=== PATIENT | male | born 2005 | race Caucasian/White ===

== ENCOUNTER → 2023-05-17 | Emergency (ER) | payer SELFPAY ==
[~2023-05-17] MED LIST: NA CHLORIDE 0.9% 1,000 ML ONE; ONDANSETRON 4 MG/2 ML VIAL ONE
--- OUTSIDE RECORDS SUMMARY | 2023-05-17 08:28 | XMS REPORT | Continuity of Care Document ---
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 2022-02-16 00:00:00 2022-02-16 00:00:00 Orders Only Doctor Unassigned, [facility] 1.2.840.114 350.1.13.10 4.2.7.2.686 [id number] [facility] 2018-06-11 12:29:00 2018-06-11 15:59:00 CONTUS OTH PRT HEAD INITIAL ENCNTR 1 TRAVIS MIRELES [facility], [address] [place], [place] [address] [facility] [id number] [facility] (LUF/LI V/SA) 2017-11-21 09:02:00 2017-11-21 10:20:00 ALLERGIC RHINITIS UNSPECIFIE TRAVIS NAQVI [facility], [address] [place], [place] [address] [facility] [id number] [facility] (LUF/LI V/SA) 2017-05-02 10:48:00 2017-05-02 13:39:00 VIRAL INFECTION UNSPECIFIE D ALANNA SERVIN [facility], [address] [place] [id number] [facility] [id number] [facility] (LUF/LI V/SA) Results Test Description Test Time Test Comments Results Resul t Comments Source XR HAND MIN 3VWS 2018-05-25 8 15:17:40 Procedure: XR HAND MIN 3VWS Exam Date: 06/11/2018 1:52 PMOrdering Provider: BINDU HERNANDEZClinical Indication: [id number]: Traumatic injuryComparison: None.Findings:Bones are in normal alignment. Joint spaces preserved. No acute fracture ordislocation. No radio-opaque foreign body.Impression:No acute fracture or dislocation. No radio-opaque foreign body.This final report was electronically signed by Dr Chad Romero DO 06/11/20183:11 PMDictated By: PANCHO ROMEROINDate: 06/11/2018 15:11 [facility] CT HEAD W/O CONTRAST 2018-05-25 8 15:05:54 Procedure: CT HEAD W/O CONTRASTOrder date: 06/11/2018 1:52 PMOrdering Provider: BINDU Laiinical Indication: Headache after traumaComparison: NoneTechnique: Using a helical scanner, sequential axial imaging of the brain wasobtained without the administration of intravenous contrast. The exam wasobtained from the skull base to vertex.This exam was performed according to the our departmental dose-optimizationprogr am which includes automated exposure control, adjustment of the mA and/orkV according to patient size and/or use of iterative reconstruction techniques.Findings:No rmal-appearing brothers and white matter with appropriate sulcation and normalparenchymal volume.There is no midline shift or hydrocephalus.There is no acute intracranial hemorrhage or mass effect.There is no CT evidence for acute cortical infarct.The calvarium is intact. There is no fracture.There is no lytic or sclerotic lesion.The visualized paranasal sinuses and mastoid air cells are clear.IMPRESSION:1. Negative CT scan of the brain without intravenous contrast administration.This final report was electronically signed by Dr Rukhsana Rollins MD 06/11/20182:59 PMDictated By: RUKHSANA ROLLINSDate: 06/11/2018 14:59 [facility] LAB STREP [id number] 10:08:00* Test Item Value Reference Range Interpretation Comme nts Strep A Screen (test code = SAS) Negative Negative N TESTING IS PER FORMED ON THE [employer] WHICH EMPLOYS IMMUNOFLUORESCENCE TECHNOLOGY TO DETECT GROUP A STREPTOCOCCAL ANTIGENS FROM THROAT SWABS OF SYMPTOMATIC PATIENTS. ALL NEGATIVE RESULTS ARE CONFIRMED BY BACTERIAL CULTURE BECAUSE NEGATIVE RESULTS DO NOT PRECLUDE GROUP A STREP INFECTION AND SHOULD NOT BE USED THE SOLE BASIS FOR TREATMENT. THIS TEST IS INTENDED FOR PROFESSIONAL AND LABORATORY USE AN AID IN THE DIAGNOSIS OF GROUP A STREPTOCOCCAL INFECTION. ONLY AVAILABLE [address] [place] [address]-[place] A [id number] 08:40:00* Test Item Value Reference Range Interpretation Comme nts Strep A culture (test code = STRAC) Negative Negative N [facility] [id number] 12:58:00* Test Item Value Reference Range Interpretation Comme nts Flu A Screen (test code = FLUA) Negative Negative N EFFECTIVE 2012 - A method change has occurred. A molecular method for Flu testing will replace the current method. Both Flu A and Flu B will be tested and results will continue to be listed as "Negative or Positive". While this method is more specific in the detection of both strains, confirmatory testing is available upon request. ldh Flu B Screen (test code = FLUB) Negative Negative N EFFECTIVE 2012 - A method change has occurred. A molecular method for Flu testing will replace the current method. Both Flu A and Flu B will be tested and results will continue to be listed as "Negative or Positive". While this method is more specific in the detection of both strains, confirmatory testing is available upon request. ldh If a specimen is collected by a nurse, then you MUST fill out the Collected and Collected By chavez [facility] A [id number] 12:55:00* Test Item Value Reference Range Interpretation Comme nts Strep A Screen (test code = SAS) Negative Negative N TESTING IS PER FORMED ON THE [employer]NA A[employer]LY[employer]ER WHICH EMPLOYS IMMUNOFLUORESCENCE TECHNOLOGY TO DETECT GROUP A STREPTOCOCCAL ANTIGENS FROM THROAT SWABS OF SYMPTOMATIC PATIENTS. ALL NEGATIVE RESULTS ARE CONFIRMED BY BACTERIAL CULTURE BECAUSE NEGATIVE RESULTS DO NOT PRECLUDE GROUP A STREP INFECTION AND SHOULD NOT BE USED THE SOLE BASIS FOR TREATMENT. THIS TEST IS INTENDED FOR PROFESSIONAL AND LABORATORY USE AN AID IN THE DIAGNOSIS OF GROUP A STREPTOCOCCAL INFECTION. [facility] Notes Date/Time Note Provider Source 2017-11-21 10:20:00 [id number]: 20:00Discharge Instructions 2Discharge DiagnosisUpper Respiratory InfectionImportant InformationConsult your physician or return to the Emergency Department immediately if worse, if not better as expected, or if any problems arise.Follow Up CareYesImportant InformationPlease understand that you have received care only on an emergency basis. If your condition does not improve, you should call your personal physician for follow-up care. If you do not have a physician, you may call the referred physician listed.If you have questions about your care or these discharge instructions, you may call the Emergency Department. Please take your discharge paperwork with you to any follow-up appointments.Follow Up CarePatient To ScheduleFollow-Up With:Primary Care PhysicianActivity LevelAs tolerated, unrestrictedDietRegularPrescriptions Given Via:Printed and given to patient/caregiver.Patient TeachingPatient education providedAntimicrobial Stewardship Patient EducationDisease ProcessDischarge InstructionsDischarge InstructionsDischarge Instructions 2017-11-21 (Encounter: [id number] for patient careSTLMTexoma Medical Center ([facility]/)[id number]:46:29 [facility] ([facility]
[2023-05-17 08:57] LABS: Absolute Lymphocytes (CBC) 0.8 K/uL (0.7-4.9); Hematocrit 45.7 % (39.6-49.0); Lymphocytes % 9.2 % (15.3-44.8); MPV 8.6 fL (7.6-11.3); Platelets 194 thou/uL (152-406); RBC Red Blood Cell Count 4.86 M/uL (4.33-5.43)
[2023-05-17 09:08] LABS: SARS-CoV-2 Antigen Rapid Res Negative (Negative)
[2023-05-17 09:09] LABS: Albumin 4.2 g/dL (3.4-5.0); Bilirubin Total 1.5 mg/dL (0.2-1.0); Potassium 3.8 mEq/L (3.5-5.1); Protein, Total 7.6 g/dL (6.4-8.2)
--- NOTE | 2023-05-17 10:19 | ER ---
Nurse's Notes [facility] Name: Hany German Age: 17 yrs Sex: Male : 2005 Arrival Date: 05/17/2023 Time: 08:24 Bed 20 Private MD: Diagnosis: Nausea with vomiting, unspecified;Diarrhea, unspecified Presentation: 05/17 08:31 Chief complaint: Patient states: started feeling nauseous on Monday, my throat hurts, iw +chills, +h/a, general weakness, no appetite. Coronavirus screen: Client presents with at least one sign or symptom that may indicate coronavirus-19. Ebola Screen: Patient negative for fever greater than or equal to 101.5 degrees Fahrenheit, and additional compatible Ebola Virus Disease symptoms Patient denies exposure to infectious person. Patient denies travel to an Ebola-affected area in the 21 days before illness onset. No symptoms or risks identified at this time. Initial Sepsis Screen: Does the patient meet any 2 criteria? No. Patient's initial sepsis screen is negative. Does the patient have a suspected source of infection? No. Patient's initial sepsis screen is negative. Risk Assessment: Do you want to hurt yourself or someone else? Patient reports no desire to harm self or others. 08:31 Method Of Arrival: Ambulatory 08:33 Onset of symptoms was May 15, 2023. iw 08:33 Acuity: KENDALL 3 iw Triage Assessment: 08:33 General: Appears in no apparent distress. Behavior is calm, cooperative. General: iw Reports feeling ill for fatigue for. Pain: Complains of pain in head. Neuro: Level of Consciousness is awake, alert, obeys commands, Oriented to person, place, time, situation, Moves all extremities. Full function. Cardiovascular: Patient's skin is warm and dry. Respiratory: Respiratory effort is even, unlabored, Respiratory pattern is regular, symmetrical. GI: Reports lower abdominal pain, upper abdominal pain, nausea, vomiting. Derm: Skin is intact, is healthy with good turgor. Musculoskeletal: Range of motion: intact in all extremities. Historical: - Allergies: 08:32 No Known Allergies; iw - Home Meds: 08:32 None [Active]; iw - PMHx: 08:32 None; iw - Immunization history:: Adult Immunizations up to date. - Family history:: not pertinent. - Social history:: Smoking status: Patient denies any tobacco usage or history of. - Hospitalizations: : No recent hospitalization is reported. Screenin:57 [facility] ED Fall Risk Assessment (Adult) History of falling in the last 3 months, kc6 including since admission No falls in past 3 months (0 pts) Confusion or Disorientation No (0 pts) Intoxicated or Sedated No (0 pts) Impaired Gait No (0 pts) Mobility Assist Device Used No (0 pt) Altered Elimination No (0 pt) Score/Fall Risk Level 0 - 2 = Low Risk. Abuse screen: Denies threats or abuse. Denies injuries from another. Nutritional screening: No deficits noted. Tuberculosis screening: No symptoms or risk factors identified. Assessment: 08:57 General: Appears in no apparent distress. comfortable, well groomed, well developed, kc6 Behavior is calm, cooperative, appropriate for age. Neuro: Level of Consciousness is awake, alert, obeys commands, Oriented to person, place, time, situation, Appropriate for age. Cardiovascular: Capillary refill < 3 seconds. Respiratory: Airway is patent Trachea midline Respiratory effort is even, unlabored, Respiratory pattern is regular, symmetrical. GI: Abdomen is flat, non-distended, Bowel sounds present X 4 quads. Reports nausea, vomiting, Patient currently denies diarrhea. : No signs and/or symptoms were reported regarding the genitourinary system. EENT: Reports difficulty swallowing. Derm: No signs and/or symptoms reported regarding the dermatologic system. Skin is intact, is healthy with good turgor, Skin is pink, warm \T\ dry. Musculoskeletal: No signs and/or symptoms reported regarding the musculoskeletal system. Circulation, motion, and sensation intact. Capillary refill < 3 seconds, Range of motion: intact in all extremities. 09:54 Reassessment: Patient appears in no apparent distress at this time. No changes from kc6 previously documented assessment. Patient and/or family updated on plan of care and expected duration. Pain level reassessed. Patient is alert, oriented x 3, equal unlabored respirations, skin warm/dry/pink. Vital Signs: 08:31 BP 138 / 75; Pulse 110; Resp 18; Temp 98.8; Pulse Ox 100% on R/A; iw 08:59 BP 122 / 72; Pulse 91; Resp 16 S; Pulse Ox 100% on R/A; kc6 09:55 BP 121 / 60; Pulse 85; Resp 16 S; Pulse Ox 100% on R/A; kc6 10:33 BP 111 / 65; Pulse 87; Resp 16; Pulse Ox 100% ; cp4 ED Course: 08:28 Patient arrived in ED. ra3 08:29 Bossman Sterling MD is Attending Physician. rn 08:33 Triage completed. iw 08:33 Arm band placed on. iw 08:49 Pura Mc, BRICE is Primary Nurse. kc6 08:57 Patient has correct armband on for positive identification. Bed in low position. Call kc6 light in reach. Side rails up X 1. Adult w/ patient. Client placed on continuous cardiac and pulse oximetry monitoring. NIBP monitoring applied. 08:57 Inserted saline lock: 22 gauge in right antecubital area, using aseptic technique. kc6 Blood collected. Patient maintains SpO2 saturation greater than 95% on room air. 10:00 Report given to Cinthya Lomeli RN. kc6 10:34 Provided Education on: nausea and vomiting. . cp4 10:37 No provider procedures requiring assistance completed. intact, bleeding controlled, No cp4 redness/swelling at site. Pressure dressing applied. Administered Medications: 08:57 Drug: NS 0.9% IV 1000 ml IV at 1 bolus Per protocol; 1000 mL bolus Route: IV; Rate: 1 kc6 bolus; Site: right antecubital; 09:58 Follow up: Response: No adverse reaction; IV Status: Completed infusion; IV Intake: kc6 1000ml 08:57 Drug: Ondansetron IVP 4 mg IVP once; over 2 minutes Route: IVP; Site: right antecubital;kc6 09:58 Follow up: Response: No adverse reaction; Nausea is decreased; Vomiting decreased kc6 Medication: 10:34 VIS not applicable for this client. cp4 Intake: 09:58 IV: 1000ml; Total: 1000ml. kc6 Outcome: 10:19 Discharge ordered by . rn 10:37 Discharged to home ambulatory, cp4 10:37 Condition: stable 10:37 Discharge instructions given to patient, Instructed on discharge instructions, follow up and referral plans. medication usage, Demonstrated understanding of instructions, follow-up care, medications, Prescriptions given X 1, 10:38 Patient left the ED. cp4 Signatures: [place] Armenta RN RN iw Bossman Sterling MD MD rn Alexandro, Pura, BRICE RN kc6 Amelia Lomeli 4 Cesia Maravilla ra3
--- NOTE | 2023-05-17 10:19 | EDPHYS ---
Physician Documentation [facility] Name: Hany German Age: 17 yrs Sex: Male : 2005 Arrival Date: 05/17/2023 Time: 08:24 Bed 20 Private MD: ED Physician Bossman Sterling HPI: 05/17 09:06 This 17 yrs old Male presents to ER via Ambulatory with complaints of Nausea/Vomiting, rn Decreased Appetite. 09:06 The patient presents to the emergency department with nausea, vomiting, diarrhea. rn Onset: The symptoms/episode began/occurred 2 day(s) ago. Possible causes: unknown. The symptoms are aggravated by nothing. The symptoms are alleviated by nothing. Associated signs and symptoms: Pertinent positives: diarrhea, fever, nausea, vomiting, Pertinent negatives: GI bleeding. Severity of symptoms: At their worst the symptoms were moderate in the emergency department the symptoms are unchanged. The patient has not experienced similar symptoms in the past. Patient reports a few days of subjective fever, chills, nausea/vomiting/diarrhea. Associated with runny nose and sore throat. Possible sick contacts at work. Reports intermittent abdominal cramping. No current abdominal pain. Historical: - Allergies: 08:32 No Known Allergies; iw - Home Meds: 08:32 None [Active]; iw - PMHx: 08:32 None; iw - Immunization history:: Adult Immunizations up to date. - Family history:: not pertinent. - Social history:: Smoking status: Patient denies any tobacco usage or history of. - Hospitalizations: : No recent hospitalization is reported. ROS: 09:06 Constitutional: Positive for fever and chills ENT: Positive for sore throat and runny rn nose Cardiovascular: Negative for chest pain, palpitations, and edema, Respiratory: Negative for shortness of breath, cough, wheezing, and pleuritic chest pain, Abdomen/GI: Positive for nausea/vomiting/diarrhea MS/Extremity: Negative for injury and deformity, Skin: Negative for injury, rash, and discoloration, Neuro: Positive for headache and generalized weakness Exam: 09:06 Constitutional: This is a well developed, well nourished patient who is awake, alert, rn and in no acute distress. Ambulatory to room without difficulty or assistance Head/Face: Normocephalic, atraumatic. ENT: Dry mucous membranes Cardiovascular: Tachycardic, regular Respiratory: No increased work of breathing, no retractions or nasal flaring. Abdomen/GI: Soft, no focal tenderness. No distention or guarding. No rebound MS/ Extremity: Pulses equal, no cyanosis. Neuro: Awake and alert, GCS 15 Vital Signs: 08:31 BP 138 / 75; Pulse 110; Resp 18; Temp 98.8; Pulse Ox 100% on R/A; iw 08:59 BP 122 / 72; Pulse 91; Resp 16 S; Pulse Ox 100% on R/A; kc6 09:55 BP 121 / 60; Pulse 85; Resp 16 S; Pulse Ox 100% on R/A; kc6 10:33 BP 111 / 65; Pulse 87; Resp 16; Pulse Ox 100% ; cp4 MDM: 08:29 Patient medically screened. rn 10:17 Differential diagnosis: Nonspecific abd pain, gastritis, pancreatitis, viral rn gastroenteritis, gastroenteritis. Data reviewed: vital signs, nurses notes, lab test result(s), and as a result, I will discharge patient. Counseling: I had a detailed discussion with the patient and/or guardian regarding the historical points, exam findings, and any diagnostic results supporting the discharge/admit diagnosis, lab results, the need for outpatient follow up, to return to the emergency department if symptoms worsen or persist or if there are any questions or concerns that arise at home. Response to treatment: the patient's symptoms have mildly improved after treatment, and as a result, I will discharge patient. Special discussion: Based on the patient's Hx, exam, and Dx evaluation, there is no indication for emergent surgery or inpatient Tx. It is understood by the patient/guardian that if the Sx's persist or worsen they need to return immediately for re-evaluation. I discussed with the patient/guardian in detail that at this point there is no indication for admission to the hospital. It is understood, however, that if the symptoms persist or worsen the patient needs to return immediately for re-evaluation. ED course: I have personally reviewed all of the results, including but not limited to blood tests and imaging deemed necessary to safely discharge this patient at this time. All results given to and printed out for patient. I personally went over all the results with the patient and answered all questions. Patient will follow-up with PCP and or specialist as discussed. Return precautions given and understood.. 05/17 08:36 Order name: Strep rn 05/17 08:36 Order name: CBC with Diff; Complete Time: 09:26 rn 05/17 08:36 Order name: CMP; Complete Time: 09:26 rn 05/17 08:36 Order name: Lipase; Complete Time: 09:26 rn 05/17 08:36 Order name: Flu; Complete Time: 09:56 rn 05/17 08:36 Order name: SARS RAPID; Complete Time: 09: rn 05/17 09:11 Order name: Throat Culture EDHI 05/17 08:36 Order name: IV Saline Lock; Complete Time: 08:50 rn 05/17 08:36 Order name: Labs collected and sent; Complete Time: 08:50 rn Administered Medications: 08:57 Drug: NS 0.9% IV 1000 ml IV at 1 bolus Per protocol; 1000 mL bolus Route: IV; Rate: 1 kc6 bolus; Site: right antecubital; 09:58 Follow up: Response: No adverse reaction; IV Status: Completed infusion; IV Intake: kc6 1000ml 08:57 Drug: Ondansetron IVP 4 mg IVP once; over 2 minutes Route: IVP; Site: right antecubital;kc6 09:58 Follow up: Response: No adverse reaction; Nausea is decreased; Vomiting decreased kc6 Disposition Summary: 05/17/23 10:19 Discharge Ordered Notes: Location: Home rn Problem: new rn Symptoms: have improved rn Condition: Stable rn Diagnosis - Nausea with vomiting, unspecified rn - Diarrhea, unspecified rn Followup: rn - With: Private Physician - When: As needed - Reason: Recheck today's complaints, Re-evaluation by your physician Discharge Instructions: - Discharge Summary Sheet rn - Diarrhea, Adult rn - Nausea and Vomiting, Adult rn Forms: - Medication Reconciliation Form rn - Thank You Letter rn - Antibiotic program management intern - Prescription Opioid Use rn - Patient Portal Instructions rn - Leadership Thank You Letter rn - Work release form cp4 Prescriptions: - ondansetron 4 mg Oral Tablet,disintegrating - take 1 tablet ORAL route every 8 hours As needed; 10 tablet; Refills: 0, rn Product Selection Permitted Signatures: Dispatcher [employer] India Smith RN RN iw Nieto, Roman, MD MD rn Campbell, Kaitlyn, RN RN kc6 Potter, Christina cp4 Corrections: (The following items were deleted from the chart) 09:07 09:06 Patient reports a few days of subjective fever, chills, nausea/vomiting/diarrhea. rn Associated with runny nose and sore throat. Possible sick contacts at work.. rn
[2023-05-17 10:59] VITALS: BP 111/65; TEMP 98.8; O2SAT 100
== END ==
LOC: ER 08:24
DX: R11.2 Nausea with vomiting, unspecified (principal); R19.7 Diarrhea, unspecified; Z11.52 Encounter for screening for COVID-19
CPT/HCPCS: 36415; 80053; 83690; 85025; 87070; 87081; 87804; 87811; J2405; J7030

== ENCOUNTER 2024-08-06 14:10 | Emergency (ER) | payer SELFPAY ==
--- NOTE | 2024-08-06 14:32 | EDPHYS ---
Physician Documentation [facility] Name: Hany German Age: 19 yrs Sex: Male : 2005 Arrival Date: 08/06/2024 Time: 14:10 Bed IW2 Private MD: ED Physician Bossman Sterling HPI: 08/06 14:27 This 19 yrs old Male presents to ER via Unassigned with complaints of Sinus Congestion, kb bump behind ear. 14:27 Patient is a 19-year-old male who presents for sinus congestion that started 6 days ago kb and a red lump behind right ear that started today. States the congestion has improved some but the red lump is new so he wanted to get it checked out to make sure he did not need anything for that. Denies fever. Denies ear pain.. Historical: - Allergies: 14:42 No Known Allergies; iw ROS: 14:27 Constitutional: As per HPI kb Exam: 14:29 Constitutional: This is a well developed, well nourished patient who is awake, alert, kb and in no acute distress. Head/Face: Normocephalic, atraumatic. ENT: Moist Mucous membranes Cardiovascular: Regular rate Respiratory: Respirations even and unlabored. No increased work of breathing. Talking in full sentences MS/ Extremity: Pulses equal, no cyanosis. Neurovascular intact. Full, normal range of motion. Neuro: Awake and alert, GCS 15, oriented to person, place, time, and situation. 14:29 ENT: External ear(s): are unremarkable, Ear canal(s): are normal, TM's: are normal, 14:29 Skin: abscess, that is small, of the right mastoid area, with induration, Vital Signs: 14:41 BP 126 / 74; Pulse 71; Resp 18; Temp 98.1; Pulse Ox 99% ; Weight 57.15 kg; Height 5 ft. iw 9 in. ; 14:41 Body Mass Index 18.61 (57.15 kg, 175.26 cm) iw MDM: 14:16 Medical Screening Exam initiated kb 14:30 Differential Diagnosis: Other sinusitis, otitis media, abscess, insect bite, kb mastoiditis. Data reviewed: vital signs, nurses notes. Historians other than the Patient: Spouse/Significant Other: spouse. Counseling: I had a detailed discussion with the patient and/or guardian regarding the historical points, exam findings, and any diagnostic results supporting the discharge/admit diagnosis, the need for outpatient follow up, a family practitioner, to return to the emergency department if symptoms worsen or persist or if there are any questions or concerns that arise at home. Administered Medications: No medications were administered Disposition: 15:52 Co-signature as Attending Physician, Bossman Sterling MD I reviewed the patient's care rn provided by the Advanced Practice Provider and agree with the diagnosis and treatment plan. Disposition Summary: 08/06/24 14:31 Discharge Ordered Notes: Location: Home kb Condition: Stable kb Diagnosis - Cutaneous abscess of neck kb - Acute sinusitis, unspecified kb Followup: kb - With: Emergency Department - When: As needed - Reason: Worsening of condition Followup: kb - With: Private Physician - When: 2 - 3 days - Reason: Recheck today's complaints, Continuance of care, Re-evaluation by your physician Discharge Instructions: - Discharge Summary Sheet kb - Skin Abscess, [id number] kb - Sinusitis, Adult, [id number] kb Forms: - Medication Reconciliation Form kb - Antibiotic Education kb - Prescription Opioid Use kb - Patient Portal Instructions kb - Leadership Thank You Letter kb Prescriptions: - Cephalexin 500 mg Oral Capsule - take 1 capsule ORAL route every 8 hours for 10 days; 30 capsule; Refills: 0, kb Product Selection Permitted Signatures: Maria Esther Henry FNP-C FNP-India Vidal, RN RN iw Bossman Sterling MD MD rn
--- NOTE | 2024-08-06 14:53 | ER ---
Nurse's Notes [facility] Name: Hany German Age: 19 yrs Sex: Male : 2005 Arrival Date: 08/06/2024 Time: 14:10 Bed IW2 Private MD: Diagnosis: Cutaneous abscess of neck;Acute sinusitis, unspecified Presentation: 08/06 14:41 Chief complaint: Patient states: red knot behind right ear x 1 day, tender to touch. iw Coronavirus screen: At this time, the client does not indicate any symptoms associated with coronavirus-19. Ebola Screen: No symptoms or risks identified at this time. 14:41 Method Of Arrival: Ambulatory iw 14:41 Acuity: KEND[place] 4 iw Historical: - Allergies: 14:42 No Known Allergies; iw Vital Signs: 14:41 BP 126 / 74; Pulse 71; Resp 18; Temp 98.1; Pulse Ox 99% ; Weight 57.15 kg; Height 5 ft. iw 9 in. ; 14:41 Body Mass Index 18.61 (57.15 kg, 175.26 cm) iw ED Course: 14:16 Patient arrived in ED. im 14:16 Maria Esther Henry F[facility]-C [facility]. kb 14:16 Bossman Sterling MD is Attending Physician. kb 14:41 India Armenta, RN is Primary Nurse. iw 14:42 Triage completed. iw 14:52 No provider procedures requiring assistance completed. Patient did not have IV access ss during this emergency room visit. Administered Medications: No medications were administered Outcome: 14:31 Discharge ordered by MD. kb 14:52 Discharged to home ambulatory, ss 14:52 Condition: good 14:52 Discharge instructions given to patient, Instructed on discharge instructions, follow up and referral plans. medication usage, Demonstrated understanding of instructions, follow-up care, medications, Prescriptions given X 1, 14:53 Patient left the ED. ss Signatures: Maria Esther Henry FNP-C FNP-[place] Vidal RN RN Sherice Bah RN RN Kate Singh im
[2024-08-06 14:56] VITALS: BP 126/74; TEMP 98.1; O2SAT 99
== END 2024-08-06 14:53 | disposition home or self-care (01) ==
LOC: ER 14:10
DX: L02.11 Cutaneous abscess of neck (principal); J01.90 Acute sinusitis, unspecified
CPT/HCPCS: 99283